=== PATIENT | male | born 1995 | race American Indian/Alaskan Native ===

== ENCOUNTER 2018-12-21 08:12 | Emergency (ER) | payer SELFPAY ==
[2018-12-21 08:20] VITALS: BP 163/79
[2018-12-21] MEDS ORDERED: IBUPROFEN PO ONE (08:55)
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
--- NOTE | 2018-12-21 09:12 | XRay Report ---
LEFT RIBS, 3 VIEWS: History: pain. Routine views of the rib cage demonstrate normal mineralization with no significant contour abnormalities, fractures or destructive lesions. PA view of the chest demonstrates no underlying cardiopulmonary abnormalities, fluid or pneumothorax. IMPRESSION: Unremarkable left rib series.
[2018-12-21] MEDS ORDERED: TYLENOL PO ONE (09:21)
== END 2018-12-21 09:45 | disposition home or self-care (01) ==
LOC: ED 08:12
DX: R07.81 Pleurodynia (principal); Z88.6 Allergy status to analgesic agent; Z76.5 Malingerer [conscious simulation]; Y09 Assault by unspecified means
CPT/HCPCS: 99283